=== PATIENT | female | born 1990 | race Caucasian/White ===

== ENCOUNTER 2016-12-31 12:10 | Emergency (ER) | payer SELFPAY ==
[~2016-12-31] VITALS: Ht 172.7 cm; Wt 60.0 kg
[~2016-12-31 12:10] MED LIST: LORTA5 PO; PRIL20CA PO
[2016-12-31 12:12] VITALS: BP 155/83; PULSE 102; RESP 20; TEMP 99.6; O2SAT 100
--- NOTE | 2016-12-31 12:15 | PD ---
Physical Exam Time Seen by Provider: 12:14 Narrative 26 y/o here with R flank pain radiating to RLQ for 2 days. Vital signs reviewed. Seen at triage desk. Awaiting bed placement. Data Data Last Documented VS Vital Signs Date Time Temp Pulse Resp B/P (MAP) Pulse Ox O2 Delivery O2 Flow Rate FiO2 12/31/16 12:12 99.6 102 20 155/83 (107) 100 Room Air MDM Medical Record Reviewed: Yes Supervised Visit with DAISHA: Farhad Coleman Dec 31, 2016 12:15
[2016-12-31] MEDS ORDERED: SODIUM CHLOR 0.9% 1000 ML INJ 1,000 ML IV SCH (12:48)
[2016-12-31] MEDS ORDERED: KETOROLAC TROMETHAMINE 30 MG/ML (IVP) VIAL IVP ONE (13:00)
[2016-12-31] MEDS ORDERED: MORPHINE SULFATE 4 MG/ML INJ IV PUSH ONE (13:00)
[2016-12-31] MEDS ORDERED: ONDANSETRON HCL 4 MG/2 ML VIAL IVP ONE (13:00)
[2016-12-31] MEDS ORDERED: SODIUM CHLORIDE 0.9% FLUSH 10 ML FLUSH IV FLUSH PRN (13:00)
--- NOTE | 2016-12-31 13:00 | PD ---
HPI Chief Complaint: Flank/Kidney Pain Time Seen by Provider: 12:32 Travel History International Travel<30 days: No Contact w/Intl Traveler<30days: No Traveled to known affect area: No History of Present Illness HPI The patient is a 26-year-old female who presents emergency department for right flank pain. The patient developed right flank pain yesterday which is progressively worsened. She does note 5 days of intermittent dysuria, mostly at the end of urination, and denies any associated hematuria. The patient denies any company vaginal discharge. The patient's last menstrual cycle was at the beginning of January, she is sexually active and not currently on control. The patient denies any previous abdominal surgeries. She does have a history of nephrolithiasis in the past on the left side. She denies any nausea, vomiting, or diarrhea. She does note mild epigastric discomfort last night which she attributes to reflux. PFSH Past Medical History Diminished Hearing: No Genitourinary: Yes Kidney Stones: Yes Tetanus Vaccination: > 5 Years Influenza Vaccination: No ?: Unknown LMP: 12/06/16 : 1 Para: 0 : 1 Past Surgical History Surgical History: No Previous Surgery Social History Alcohol Use: Yes (3-4 BEERS/DAY ) Tobacco Use: Yes Substance Use: Yes (REPORTS MARIJUANA USE) Allergies-Medications (Allergen,Severity, Reaction): Coded Allergies: No Known Allergies (Verified , 12/31/16) Reported Meds & Prescriptions Reported Meds & Active Scripts Active No Active Prescriptions or Reported Medications Review of Systems Except as stated in HPI: all other systems reviewed are Neg General / Constitutional: No: Fever HENT: No: Lightheadedness Cardiovascular: No: Chest Pain or Discomfort Respiratory: No: Shortness of Breath Gastrointestinal: Positive: Abdominal Pain, No: Nausea, Vomiting Genitourinary: Positive: Dysuria, Flank Pain, No: Hematuria Skin: No Rash Neurologic: No: Dizziness Physical Exam Narrative GENERAL: Awake, alert, pleasant 26-year-old female who appears her stated age and is in no acute respiratory distress. SKIN: Focused skin assessment warm/dry. HEAD: Atraumatic. Normocephalic. EYES: Pupils equal and round. No scleral icterus. No injection or drainage. ENT: No nasal bleeding or discharge. Mucous membranes pink and moist. NECK: Trachea midline. No JVD. CARDIOVASCULAR: Regular rate and rhythm. No murmur appreciated. RESPIRATORY: No accessory muscle use. Clear to auscultation. Breath sounds equal bilaterally. GASTROINTESTINAL: Abdomen soft, non-tender, nondistended. Negative Hawley's. Negative McBurney's. Back: Mild right CVA tenderness. Right flank tenderness. MUSCULOSKELETAL: No obvious deformities. No clubbing. No cyanosis. No edema. NEUROLOGICAL: Awake and alert. No obvious cranial nerve deficits. Motor grossly within normal limits. Normal speech. PSYCHIATRIC: Appropriate mood and affect; insight and judgment normal. Data Data Last Documented VS Vital Signs Date Time Temp Pulse Resp B/P (MAP) Pulse Ox O2 Delivery O2 Flow Rate FiO2 12/31/16 13:08 17 12/31/16 13:01 99 Room Air 12/31/16 12:45 86 12/31/16 12:12 99.6 Orders Orders Ed Urine Pregnancytest Poc (12/31/16 12:40) Complete Blood Count With Diff (12/31/16 12:48) Comprehensive Metabolic Panel (12/31/16 12:48) Lipase (12/31/16 12:48) Urinalysis - C+S If Indicated (12/31/16 12:48) Ct Abd/Pel W/O Iv Contrast (12/31/16 12:48) Iv Access Insert/Monitor (12/31/16 12:48) Ecg Monitoring (12/31/16 12:48) Oximetry (12/31/16 12:48) Morphine Inj (Morphine Inj) (12/31/16 13:00) Ondansetron Inj (Zofran Inj) (12/31/16 13:00) Sodium Chlor 0.9% 1000 Ml Inj (Ns 1000 M (12/31/16 12:48) Sodium Chloride 0.9% Flush (Ns Flush) (12/31/16 13:00) Ketorolac Inj (Toradol Inj) (12/31/16 13:00) Urine Culture (12/31/16 12:17) Ceftriaxone Inj (Rocephin Inj) (12/31/16 14:15) Labs Laboratory Tests Test 12/31/16 12:11 12/31/16 12:17 White Blood Count 18.0 TH/MM3 Red Blood Count 4.44 MIL/MM3 Hemoglobin 13.6 GM/DL Hematocrit 41.0 % Mean Corpuscular Volume 92.3 FL Mean Corpuscular Hemoglobin 30.5 PG Mean Corpuscular Hemoglobin Concent 33.1 % Red Cell Distribution Width 13.6 % Platelet Count 238 TH/MM3 Mean Platelet Volume 9.2 FL Neutrophils (%) (Auto) 81.8 % Lymphocytes (%) (Auto) 8.7 % Monocytes (%) (Auto) 9.1 % Eosinophils (%) (Auto) 0.1 % Basophils (%) (Auto) 0.3 % Neutrophils # (Auto) 14.7 TH/MM3 Lymphocytes # (Auto) 1.6 TH/MM3 Monocytes # (Auto) 1.6 TH/MM3 Eosinophils # (Auto) 0.0 TH/MM3 Basophils # (Auto) 0.1 TH/MM3 CBC Comment DIFF FINAL Differential Comment Blood Urea Nitrogen 7 MG/DL Creatinine 0.80 MG/DL Random Glucose 104 MG/DL Total Protein 7.8 GM/DL Albumin 4.1 GM/DL Calcium Level 9.8 MG/DL Alkaline Phosphatase 60 U/L Aspartate Amino Transf (AST/SGOT) 7 U/L Alanine Aminotransferase (ALT/SGPT) 14 U/L Total Bilirubin 0.5 MG/DL Sodium Level 137 MEQ/L Potassium Level 3.6 MEQ/L Chloride Level 104 MEQ/L Carbon Dioxide Level 24.9 MEQ/L Anion Gap 8 MEQ/L Estimat Glomerular Filtration Rate 85 ML/MIN Lipase 91 U/L Urine Color YELLOW Urine Turbidity HAZY Urine pH 6.5 Urine Specific [place] 1.014 Urine Protein 30 mg/dL Urine Glucose (UA) NEG mg/dL Urine Ketones 40 mg/dL Urine Occult Blood SMALL Urine Nitrite NEG Urine Bilirubin NEG Urine Urobilinogen LESS THAN 2.0 MG/DL Urine Leukocyte Esterase MOD Urine RBC 11 /hpf Urine WBC 22 /hpf Urine Squamous Epithelial Cells 7 /hpf Urine Bacteria FEW /hpf Urine Mucus FEW /lpf Microscopic Urinalysis Comment CULTURE INDICATED MDM Medical Decision Making Medical Screen Exam Complete: Yes Emergency Medical Condition: Yes Medical Record Reviewed: Yes Interpretation(s) Last Impressions Abdomen/Pelvis CT 12/31/16 1248 Signed Impressions: Service Date/Time: Saturday, December 31, 2016 13:26 - CONCLUSION: 1. Right kidney: 2. Punctate 1-2 mm stone in the collecting system. No findings to indicate renal obstruction identified. 3. 4. Left kidney: 5. 2 punctate nonobstructing stones are seen. 6. Small amount of free fluid within the pelvis. 7. Examination is otherwise unremarkable. Basil Landaverde MD Laboratory Tests Test 12/31/16 12:11 12/31/16 12:17 White Blood Count 18.0 TH/MM3 Red Blood Count 4.44 MIL/MM3 Hemoglobin 13.6 GM/DL Hematocrit 41.0 % Mean Corpuscular Volume 92.3 FL Mean Corpuscular Hemoglobin 30.5 PG Mean Corpuscular Hemoglobin Concent 33.1 % Red Cell Distribution Width 13.6 % Platelet Count 238 TH/MM3 Mean Platelet Volume 9.2 FL Neutrophils (%) (Auto) 81.8 % Lymphocytes (%) (Auto) 8.7 % Monocytes (%) (Auto) 9.1 % Eosinophils (%) (Auto) 0.1 % Basophils (%) (Auto) 0.3 % Neutrophils # (Auto) 14.7 TH/MM3 Lymphocytes # (Auto) 1.6 TH/MM3 Monocytes # (Auto) 1.6 TH/MM3 Eosinophils # (Auto) 0.0 TH/MM3 Basophils # (Auto) 0.1 TH/MM3 CBC Comment DIFF FINAL Differential Comment Blood Urea Nitrogen 7 MG/DL Creatinine 0.80 MG/DL Random Glucose 104 MG/DL Total Protein 7.8 GM/DL Albumin 4.1 GM/DL Calcium Level 9.8 MG/DL Alkaline Phosphatase 60 U/L Aspartate Amino Transf (AST/SGOT) 7 U/L Alanine Aminotransferase (ALT/SGPT) 14 U/L Total Bilirubin 0.5 MG/DL Sodium Level 137 MEQ/L Potassium Level 3.6 MEQ/L Chloride Level 104 MEQ/L Carbon Dioxide Level 24.9 MEQ/L Anion Gap 8 MEQ/L Estimat Glomerular Filtration Rate 85 ML/MIN Lipase 91 U/L Urine Color YELLOW Urine Turbidity HAZY Urine pH 6.5 Urine Specific [place] 1.014 Urine Protein 30 mg/dL Urine Glucose (UA) NEG mg/dL Urine Ketones 40 mg/dL Urine Occult Blood SMALL Urine Nitrite NEG Urine Bilirubin NEG Urine Urobilinogen LESS THAN 2.0 MG/DL Urine Leukocyte Esterase MOD Urine RBC 11 /hpf Urine WBC 22 /hpf Urine Squamous Epithelial Cells 7 /hpf Urine Bacteria FEW /hpf Urine Mucus FEW /lpf Microscopic Urinalysis Comment CULTURE INDICATED Differential Diagnosis Differential diagnosis includes nephrolithiasis, appendicitis, pyelonephritis, ovarian cyst, ovarian torsion, PID, cervicitis. Narrative Course IV was established, labs are drawn and sent, and the patient was placed on cardiac telemetry monitoring and continuous pulse oximetry monitoring. I reviewed the EMR the patient does have a history of nephrolithiasis with right flank pain. Bedside UA test was negative. UA was sent to lab and noncontrast CT of the abdomen and pelvis was ordered to evaluate for nephrolithiasis. The patient was administered morphine, Toradol, Zofran, and IV fluids. CT reveals no acute findings, patient does have punctate stones in both kidneys but no obvious obstruction or stone in the ureter. White count is 18, UA does have WBCs and RBCs, most likely related to pyelonephritis. Patient has no vaginal discharge or lower pelvic pain, therefore, no pelvic exam performed. 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 She is advised to return if symptoms worsen or progress. Sepsis Criteria SIRS Criteria (2 or more): Heart rate over 90, WBC > 43282, < 4000 or > 10% bands Diagnosis Primary Impression: Pyelonephritis Patient Instructions: General Instructions Additional Instructions: Medications as directed. Follow-up with your primary physician. Return if symptoms worsen or progress. Med/Other Pt SpecificInfo: Prescription(s) given Scripts Phenazopyridine (Pyridium) 100 Mg Tab 100 MG PO Q8H Y for DYSURIA for 2 Days, #6 TAB 0 Refills Prov: Prince Wells MD 12/31/16 Ciprofloxacin (Cipro) 500 Mg Tab 500 MG PO BID for Infection, #20 TAB 0 Refills Prov: Prince Wells MD 12/31/16 Disposition: 01 DISCHARGE HOME Condition: Stable Prince Wells MD Dec 31, 2016 13:00
[2016-12-31 13:01] VITALS: RESP 18; O2SAT 99
[2016-12-31 13:36] LABS: AUTOMATED NEUTROPHIL # 14.7 TH/MM3 (1.8-7.7); BASOPHIL # 0.1 TH/MM3 (0-0.2); BASOPHIL % 0.3 % (0.0-2.0); EOSINOPHIL % 0.1 % (0.0-4.0); HEMO FLAGS DIFF FINAL; LYMPH % 8.7 % (9.0-44.0); LYMPHOCYTE # 1.6 TH/MM3 (1.0-4.8); MEAN CELL VOLUME 92.3 FL (80.0-100.0); MEAN CORPUSCULAR HEMOGLOBIN 30.5 PG (27.0-34.0); MEAN CORPUSCULAR HGB CONC 33.1 % (32.0-36.0); MONO % 9.1 % (0.0-8.0); NEUT % 81.8 % (16.0-70.0); PLATELET COUNT 238 TH/MM3 (150-450); RED BLOOD COUNT 4.44 MIL/MM3 (4.00-5.30); RED CELL DISTRIBUTION WIDTH 13.6 % (11.6-17.2)
[2016-12-31 13:48] LABS: BACTERIA, URINE FEW /hpf; BLOOD, URINE SMALL (NEG); COMMENT (UR) CULTURE INDICATED; CULTURE IF INDICATED CULTURE INDICATED; GLUCOSE,URINE NEG (NEG); KETONE, URINE 40 mg/dL (NEG); MUCUS URINE FEW /lpf (OCC); NITRITE,URINE NEG (NEG); PH, URINE 6.5 (5.0-8.5); SQUAMOUS EPITHELIAL CELL URINE 7 /hpf (0-5); URINE COLOR YELLOW (YELLW/STRAW)
--- NOTE | 2016-12-31 13:58 | RADRPT ---
EXAM DATE/TIME: 12/31/2016 13:26 [facility] COMPARISON: CT ABDOMEN & PELVIS W CONTRAST, September 03, 2013, 6:30. INDICATIONS : Right flank pain since yesterday ORAL CONTRAST: No oral contrast ingested. RADIATION DOSE: 3.77 CTDIvol (mGy) MEDICAL HISTORY : Renal calculi. SURGICAL HISTORY : None. ENCOUNTER: Initial ACUITY: 2 days PAIN SCALE: 7/10 LOCATION: Right flank TECHNIQUE: Volumetric scanning of the abdomen and pelvis was performed. Using automated exposure control and ad justment of the mA and/or kV according to patient size, radiation dose was kept as low as reasonably achievable to obtain optimal diagnostic quality images. DICOM format image data is available electro nically for review and comparison. FINDINGS: The limited portion of the lung base visualized is clear. Right kidney/ureter: The examination demonstrates a 2 mm nonobstructing stone within the collecting system of the right ki dney. The right ureter is followed throughout its course. No stones are seen within the right ureter. Left kidney/ureter: The left kidney is normal in size. There is no hydronephrosis. There are 2 punctate stones within the collecting system measuring approximately 1-2 mm in size. The ureter is followed throughout its cour se. No stones are seen within the left ureter. CT source data: The visualized portion of liver and spleen are unremarkable. The pancreas and adrenal glands are inta ct. The abdominal aorta is normal in caliber. There is no retroperitoneal adenopathy. There is a small amount of free fluid within the low pelvis. No iliac or inguinal adenopathy is seen. The visualized bony structures are grossly intact. CONCLUSION: 1. Right kidney: 2. Punctate 1-2 mm stone in the collecting system. No findings to indicate renal obstruction identifi ed. 3. 4. Left kidney: 5. 2 punctate nonobstructing stones are seen. 6. Small amount of free fluid within the pelvis. 7. Examination is otherwise unremarkable. Basil Landaverde MD on December 31, 2016 at 13:49 Board Certified Radiologist. This report was verified electronically.
[2016-12-31 14:03] VITALS: RESP 17
[2016-12-31 14:06] LABS: ANION GAP 8 MEQ/L (5-15); AST (GOT) 7 U/L (15-37); BICARBONATE 24.9 MEQ/L (21.0-32.0); BLOOD UREA NITROGEN 7 MG/DL (7-18); CHLORIDE 104 MEQ/L (98-107); GLOMERULAR FILTRATION RATE 85 ML/MIN (>89); POTASSIUM 3.6 MEQ/L (3.5-5.1); SODIUM (NA) 137 MEQ/L (136-145)
[2016-12-31 14:07] LABS: ALT (GPT) 14 U/L (10-53)
[2016-12-31 14:09] LABS: ALKALINE PHOSPHATASE 60 U/L (45-117); TOTAL BILIRUBIN ADULT 0.5 MG/DL (0.2-1.0)
[2016-12-31] MEDS ORDERED: cefTRIAXone INJ 1,000 MG in SODIUM CHLORIDE 0.9% INJ 100 ML IV ONE (14:15)
[2016-12-31] MEDS ORDERED: PHEN0.4T PO (14:31)
[2016-12-31] MEDS ORDERED: CIPR-9 PO (14:31)
[2016-12-31 15:00] VITALS: BP 122/83; TEMP 97.8
== END 2016-12-31 15:00 | disposition home or self-care (01) ==
LOC: NEPD 12:10
DX: N12 Tubulo-interstitial nephritis, not specified as acute or chronic (principal); N20.0 Calculus of kidney; R30.0 Dysuria; B95.7 Other staphylococcus as the cause of diseases classified elsewhere; Z72.0 Tobacco use; Z87.442 Personal history of urinary calculi
CPT/HCPCS: 74176; 80053; 81001; 83690; 84703; 85025; 86403; 87077; 87086; 87186; 96361; 96365; 96375; 99285; J0696; J1885; J2270; J2405; J7030